=== PATIENT | female | born 1995 | race Caucasian/White ===

== ENCOUNTER 2017-08-03 18:33 | Emergency (ER) | payer SELFPAY ==
--- NOTE | 2017-08-03 20:36 | ER Document Report ---
ED Medical Screen (RME) - General Chief Complaint: Sinus Congestion Stated Complaint: NAUSEA Time Seen by Provider: 08/03/17 20:27 Mode of Arrival: Ambulatory Information source: Patient Notes: Patient presents complaining of nausea for the past 3-4 days with sinus congestion that started yesterday. Patient states she held a cat recently and is allergic to cats. Patient is concerned that she may be and states that she can only have serum test for accuracy. I have greeted and performed a rapid initial assessment of this patient. A comprehensive ED assessment and evaluation of the patient, analysis of test results and completion of the medical decision making process will be conducted by additional ED providers. TRAVEL OUTSIDE OF THE [place] IN LAST 30 DAYS: No - Related Data Allergies/Adverse Reactions: Cephalosporins Allergy (Verified 08/03/17 18:35) ciprofloxacin [From Cipro] Allergy (Verified 08/03/17 18:35) Penicillins Allergy (Verified 08/03/17 18:35) sulfamethoxazole [From Bactrim] Allergy (Verified 08/03/17 18:35) trimethoprim [From Bactrim] Allergy (Verified 08/03/17 18:35) Past Medical History - Social History Frequency of alcohol use: None Drug Abuse: None - Past Medical History Cardiac Medical History: Reports: Hx Hypertension - "borderline HTN" Pulmonary Medical History: Reports: Hx Asthma Renal/ Medical History: Denies: Hx Peritoneal Dialysis Past Surgical History: Reports: Hx Section, Hx Orthopedic Surgery - wrist surgery x2 Physical Exam - Vital signs Vitals: Temp Pulse Resp BP Pulse Ox 98.9 F 89 20 142/75 H 97 08/03/17 18:38 08/03/17 18:38 08/03/17 18:38 08/03/17 18:38 08/03/17 18:38 - HEENT Ears: Normal External canal: Normal Sinus: Maxillary Nasal: Swelling, Clear rhinorrhea Course - Vital Signs Vital signs: Temp Pulse Resp BP Pulse Ox 98.9 F 89 20 142/75 H 97 08/03/17 18:38 0318 18:38 08/03/17 18:38 08/03/17 18:38 08/03/17 18:38
--- NOTE | 2017-08-03 22:13 | ER Document Report ---
ED Respiratory Problem - General Chief Complaint: Sinus Congestion Stated Complaint: NAUSEA Time Seen by Provider: 08/03/17 20:27 Mode of Arrival: Ambulatory Information source: Patient TRAVEL OUTSIDE OF THE [place] IN LAST 30 DAYS: No - HPI Patient complains to provider of: Other - NASAL CONGESTION Onset: Yesterday Notes: Patient is here with complaints of nausea vomiting as well as nasal congestion. She states that for the last 3-4 days she has felt nauseous and had some vomiting yesterday. No vomiting today. She denies any abdominal pain. She denies any fever or diarrhea. She is concerned that she may be and wanted a serum test to see if she is . She also states that she had a cat yesterday and since that time she has had nasal congestion and runny nose. She is allergic to cats. She is taken Zyrtec without relief. She denies any fevers. She denies sore throat. She denies difficulty breathing or swallowing. No chest pain or shortness of breath. No dysuria or hematuria. She denies any other complaints at this time. - Related Data Allergies/Adverse Reactions: Cephalosporins Allergy (Verified 08/03/17 18:35) ciprofloxacin [From Cipro] Allergy (Verified 08/03/17 18:35) Penicillins Allergy (Verified 08/03/17 18:35) sulfamethoxazole [From Bactrim] Allergy (Verified 08/03/17 18:35) trimethoprim [From Bactrim] Allergy (Verified 08/03/17 18:35) Past Medical History - General Information source: Patient - Social History Smoking Status: Former Smoker Frequency of alcohol use: None Drug Abuse: None Family History: Reviewed & Not Pertinent Patient has suicidal ideation: No Patient has homicidal ideation: No - Past Medical History Cardiac Medical History: Reports: Hx Hypertension - "borderline HTN" Pulmonary Medical History: Reports: Hx Asthma Renal/ Medical History: Denies: Hx Peritoneal Dialysis Past Surgical History: Reports: Hx Section, Hx Orthopedic Surgery - wrist surgery x2 Review of Systems - Review of Systems -: Yes All other systems reviewed and negative Physical Exam - Vital signs Vitals: Temp Pulse Resp BP Pulse Ox 98.9 F 89 20 142/75 H 97 08/03/17 18:38 08/03/17 18:38 08/03/17 18:38 08/03/17 18:38 08/03/17 18:38 - Notes Notes: GENERAL: alert, cooperative, nontoxic, no distress. HEAD: normocephalic, atraumatic EYES: conjunctiva pink without discharge, no external redness or swelling. EARS: no external swelling, no external redness, no mastoid redness, swelling, tenderness. Ear canals are clear without swelling or drainage. TMs pearly machado , no redness, no bulging, normal landmarks, no perforation. NOSE: atraumatic, no external swelling. clear rhinorrhea noted. Nasal congestion noted MOUTH/THROAT: mucous membranes moist and pink, posterior pharynx without erythema, swelling, exudate. No trismus or drooling. NECK: soft, supple, full range of motion, no meningismus. CHEST: no distress, lungs clear and equal throughout. No wheezing, rales, rhonchi. CARDIAC: regular rate and rhythm, no murmur, normal capillary refill, normal pulses. No peripheral edema noted. BACK: full range of motion, no CVA tenderness. ABDOMEN: Soft, nontender. No rebound tenderness or guarding. EXTREMITIES: full range of motion of all extremities. No redness, no swelling. NEURO: alert and oriented A&O3, no focal deficits, full range of motion of all extremities. PYSCH: appropriate mood, affect. Patient is cooperative. SKIN: pink, warm, dry, no rash. Course - Re-evaluation Re-evalutation: 08/03/17 22:09 Patient is nontoxic appearing with stable vitals. The patient is here with complaints of nausea vomiting that has since resolved and concerned that she may be . Serum is negative. She has no abdominal tenderness on exam. She has no urinary symptoms. She is also concerned because she is having nasal congestion. She has no signs of infection. It is possible she could be having allergic reaction due to holding the cat yesterday or an upper respiratory infection. She was instructed to continue taking her Zyrtec. I will discharge her home with Flonase. She can try [id number] Sudafed if she would like. Tylenol Motrin as needed. Follow-up if not better in the next week, sooner for increasing pain, fever, persistent vomiting, abdominal pain, or for any further concerns. The patient is noted to have elevated blood pressure during today's emergency department visit. The patient was informed of this finding. The patient was instructed that this may be related to pre-hypertension and requires further evaluation with a primary care provider. The patient has no hypertensive symptoms at this time. The patient's emergency department workup and current diagnosis were explained to the patient and or family. Follow-up instructions were provided. Medications if prescribed were discussed. Instructions for when to return to the emergency department including specific worrisome symptoms were discussed with the patient and/or family. - Vital Signs Vital signs: Temp Pulse Resp BP Pulse Ox 98.9 F 89 20 142/75 H 97 08/03/17 18:38 08/03/17 18:38 08/03/17 18:38 08/03/17 18:38 08/03/17 18:38 Discharge - Discharge Clinical Impression: Nasal congestion URI (upper respiratory infection) Qualifiers: URI type: unspecified viral URI Qualified Code(s): J06.9 - Acute upper respiratory infection, unspecified Nausea & vomiting Qualifiers: Vomiting type: unspecified Vomiting Intractability: non-intractable Qualified Code(s): R11.2 - Nausea with vomiting, unspecified Condition: Stable Disposition: HOME, SELF-CARE Instructions: Upper Respiratory Illness ([facility]), Vomiting ([facility]) Additional Instructions: Take medications as prescribed. Continue allergy medicine. He may also try [id number] Sudafed. Drink lots of fluids. Follow-up with your doctor if not better in 1 week, sooner for worsening symptoms, high fever, difficulty breathing or swallowing, severe abdominal pain, or for any further concerns. Your blood pressure was elevated during today's visit. Have this rechecked with your doctor. Prescriptions: Fluticasone Propionate [Flonase Nasal Portia 50 Mcg/Portia 16 gm] 1 spray NASL Q12 #1 inhaler Forms: Elevated Blood Pressure, Smoking Cessation Education Referrals: FELI PARRISH DO [Primary Care Provider] - Follow up as needed
[2017-08-03 22:31] VITALS: BP 141/83
== END 2017-08-03 22:21 | disposition home or self-care (01) ==
LOC: ER 18:33
DX: J06.9 Acute upper respiratory infection, unspecified (principal); R11.2 Nausea with vomiting, unspecified; R09.81 Nasal congestion; I10 Essential (primary) hypertension; Z87.891 Personal history of nicotine dependence
CPT/HCPCS: 36415; 84703; 99283

== ENCOUNTER 2017-09-27 12:38 | Emergency (ER) | payer SELFPAY ==
[2017-09-27 13:00] VITALS: BP 142/82
--- NOTE | 2017-09-27 13:22 | ER Document Report ---
HPI - HPI Patient complains to provider of: UTI Onset: Other - 1 week ago Onset/Duration: Gradual Pain Level: 3 Context: 22 yo female with urinary frequency, suprapubic cramping, 1-2 x hematuria few days ago, low back pain, no fever. Hx UTI. No vaginal discharge or odor, no itch. Has taken clindamycin left over 2 days ago. Associated Symptoms: Other - see above - REPRODUCTIVE Reproductive: DENIES: : Past Medical History - General Information source: Patient - Social History Smoking Status: Never Smoker Frequency of alcohol use: None Drug Abuse: None Lives with: Family Family History: Reviewed & Not Pertinent - Past Medical History Cardiac Medical History: Reports: Hx Hypertension - "borderline HTN" Pulmonary Medical History: Reports: Hx Asthma Renal/ Medical History: Denies: Hx Peritoneal Dialysis Past Surgical History: Reports: Hx Section, Hx Orthopedic Surgery - wrist surgery x2 Vertical Provider Document - CONSTITUTIONAL Agree With Documented VS: Yes Exam Limitations: No Limitations - INFECTION CONTROL TRAVEL OUTSIDE OF THE [place] IN LAST 30 DAYS: No - HEENT HEENT: Normocephalic - NECK Neck: Supple - RESPIRATORY Respiratory: Breath Sounds Normal, No Respiratory Distress - CARDIOVASCULAR Cardiovascular: Regular Rate, Regular Rhythm - GI/ABDOMEN Gastrointestinal: Abdomen Soft, Abdomen Non-Tender, No Organomegaly, Normal Bowel Sounds - BACK Back: negative: CVA Tenderness-Right, CVA Tenderness-Left - MUSCULOSKELETAL/EXTREMETIES Musculoskeletal/Extremeties: MAEW - NEURO Level of Consciousness: Awake - DERM Integumentary: No Rash Course - Re-evaluation Re-evalutation: 09/27/17 UA pos for UTI, neg hcg - Vital Signs Vital signs: Temp Pulse Resp BP Pulse Ox 98.7 F 87 19 142/82 H 97 09/27/17 12:59 09/27/17 12:59 09/27/17 12:59 09/27/17 12:59 09/27/17 12:59 Discharge - Discharge Clinical Impression: Urinary tract infection Qualifiers: Urinary tract infection type: acute cystitis Hematuria presence: without hematuria Qualified Code(s): N30.00 - Acute cystitis without hematuria Condition: Good Disposition: HOME, SELF-CARE Instructions: Nitrofurantoin ([facility]), Urinary Tract Infection ([facility]) Additional Instructions: plenty of fluids urine culture is pending to er if worse with fever, vomiting, flank pain Prescriptions: Nitrofurantoin/Nitrofuran Mac [Macrobid 100 mg Capsule] 100 mg PO BID #14 capsule Forms: Return to Work
[2017-09-27 13:57] LABS: APPEARANCE,URINE SLIGHTLY-CLOUDY; BILIRUBIN,URINE NEGATIVE (NEGATIVE); COLOR,URINE AMBER; GLUCOSE, URINE NEGATIVE (NEGATIVE); KETONES,URINE NEGATIVE (NEGATIVE); LEUKOCYTE ESTERASE,URINE SMALL (NEGATIVE); NITRITE,URINE POSITIVE (NEGATIVE); PROTEIN,URINE NEGATIVE (NEGATIVE); URINE SPECIFIC GRAVITY 1.017
[2017-09-27] MEDS ORDERED: NITROFURANTOIN MONOHYD/M-CRYST 100 MG CAPSULE PO ONE (14:13)
== END 2017-09-27 14:29 | disposition home or self-care (01) ==
LOC: ER 12:38
DX: N30.00 Acute cystitis without hematuria (principal); R10.2 Pelvic and perineal pain; M54.5 Low back pain
CPT/HCPCS: 99283; 87086; 81025; 87088; 81001; 87186; J8499

== ENCOUNTER 2017-10-11 16:51 | Emergency (ER) | payer SELFPAY ==
[2017-10-11] MEDS ORDERED: IBUPROFEN 800 MG TABLET PO ONE (17:45)
--- NOTE | 2017-10-11 18:15 | RADIOLOGY REPORT (SQ) ---
EXAM DESCRIPTION: ANKLE LEFT COMPLETE COMPLETED DATE/TIME: 10/11/2017 6:03 pm REASON FOR STUDY: L lateral malleolus pain COMPARISON: None. NUMBER OF VIEWS: Three views. TECHNIQUE: AP, lateral, and oblique radiographic images acquired of the left ankle. LIMITATIONS: None. FINDINGS: MINERALIZATION: Normal. BONES: No acute fracture or dislocation. No worrisome bone lesions. JOINTS: No effusions. SOFT TISSUES: No soft tissue swelling. No foreign body. OTHER: No other significant finding. IMPRESSION: NO RADIOGRAPHIC EVIDENCE OF ACUTE INJURY. TECHNICAL DOCUMENTATION: JOB ID: [id number] [place]-72 2010 [email or web address]- All Rights Reserved Reading location - IP/workstation name: [email or web address]
--- NOTE | 2017-10-11 18:16 | RADIOLOGY REPORT (SQ) ---
EXAM DESCRIPTION: FOOT LEFT COMPLETE COMPLETED DATE/TIME: 10/11/2017 6:03 pm REASON FOR STUDY: L heel pain, question spur vs fasciitis COMPARISON: None. NUMBER OF VIEWS: Three views. TECHNIQUE: AP, lateral and oblique radiographic images acquired of the left foot. LIMITATIONS: None. FINDINGS: MINERALIZATION: Normal. BONES: No acute fracture or dislocation. No worrisome bone lesions. JOINTS: No effusions. SOFT TISSUES: No soft tissue swelling. No foreign body. OTHER: No other significant finding. IMPRESSION: NO RADIOGRAPHIC EVIDENCE OF ACUTE INJURY. TECHNICAL DOCUMENTATION: JOB ID: [id number] [place]-72 2010 [email or web address]- All Rights Reserved Reading location - IP/workstation name: [email or web address]
--- NOTE | 2017-10-11 19:09 | ER Document Report ---
ED General - General Chief Complaint: Foot Pain Stated Complaint: LEFT HEEL PAIN Time Seen by Provider: 10/11/17 17:17 TRAVEL OUTSIDE OF THE [place] IN LAST 30 DAYS: No - HPI Notes: Patient is a 22-year-old female presents emergency department with report that 3 weeks ago she inverted her left ankle and has had left ankle pain since that time that is gradually improved and the swelling is improved, but she still has mild left lateral ankle discomfort but has noted that her left heel and plantar aspect of the foot have been progressively hurting over the course of the last week. The patient has been wearing a flat soled slipper recently. The patient denies any chest pain or shortness of breath or numbness or paresthesia or nausea or vomiting. The patient reports no other musculoskeletal complaint or arthritis pain. - Related Data Allergies/Adverse Reactions: Cephalosporins Allergy (Verified 10/11/17 16:52) ciprofloxacin [From Cipro] Allergy (Verified 10/11/17 16:52) Penicillins Allergy (Verified 10/11/17 16:52) sulfamethoxazole [From Bactrim] Allergy (Verified 10/11/17 16:52) trimethoprim [From Bactrim] Allergy (Verified 10/11/17 16:52) Past Medical History - General Information source: Patient - Social History Smoking Status: Unknown if Ever Smoked Frequency of alcohol use: Occasional Drug Abuse: None Lives with: Alone Family History: Reviewed & Not Pertinent Patient has suicidal ideation: No Patient has homicidal ideation: No - Past Medical History Cardiac Medical History: Reports: Hx Hypertension - "borderline HTN" Pulmonary Medical History: Reports: Hx Asthma Renal/ Medical History: Denies: Hx Peritoneal Dialysis Past Surgical History: Reports: Hx Section, Hx Orthopedic Surgery - wrist surgery x2 Review of Systems - Review of Systems -: Yes All other systems reviewed and negative Physical Exam - Vital signs Vitals: Temp Pulse Resp BP Pulse Ox 98.7 F 87 16 147/81 H 97 10/11/17 16:58 10/11/17 16:58 10/11/17 16:58 10/11/17 16:58 10/11/17 16:58 - Notes Notes: Examination general no obvious distress. HEENT atraumatic normocephalic. Conjunctiva clear. Examination left lower extremity shows a nonfocal hip and knee exam patient has pain along the lateral aspect of the left ankle with minimal residual swelling over the lateral malleolus, but no erythema. Patient also has pain through the plantar anterior aspect of the calcaneus extending along the plantar fascia. No bony deformity or crepitance. Distally, the patient is neurovascularly intact with good distal sensation and capillary refill. There is no proximal erythema or adenopathy. Ligamentous structures appear otherwise intact. Course - Re-evaluation Re-evalutation: 10/11/17 19:13 X-rays were negative. Patient was given ibuprofen. No evidence for obvious stress fracture or neurovascular compromise. - Vital Signs Vital signs: Temp Pulse Resp BP Pulse Ox 98.7 F 87 16 147/81 H 97 10/11/17 16:58 10/11/17 16:58 10/11/17 16:58 10/11/17 16:58 10/11/17 16:58 Discharge - Discharge Clinical Impression: Plantar fasciitis of left foot Ankle sprain Qualifiers: Encounter type: initial encounter Involved ligament of ankle: deltoid ligament Laterality: left Qualified Code(s): S93.422A - Sprain of deltoid ligament of left ankle, initial encounter Condition: Stable Disposition: HOME, SELF-CARE Instructions: Sprained Ankle ([facility]), Plantar Fasciitis or Heel Spur ([facility]) Additional Instructions: Use shoe inserts and arch supports. Elevate and limit time on feet as needed for pain. Do not go barefoot. Prescriptions: Ibuprofen [Motrin 800 mg Tablet] 800 mg PO Q8H PRN #30 tab PRN Reason: Referrals: DONAVAN SHEA DPM [ACTIVE STAFF] - Follow up as needed RAMU DUARTE DPM [NO LOCAL MD] - Follow up as needed
[2017-10-11 19:24] VITALS: BP 121/65
== END 2017-10-11 19:22 | disposition home or self-care (01) ==
LOC: ER 16:51
DX: S93.422A Sprain of deltoid ligament of left ankle, initial encounter (principal); M72.2 Plantar fascial fibromatosis; M25.572 Pain in left ankle and joints of left foot; X50.1XXA Overexertion from prolonged static or awkward postures, initial encounter; I10 Essential (primary) hypertension; J45.909 Unspecified asthma, uncomplicated
CPT/HCPCS: 99283

== ENCOUNTER 2017-12-04 17:43 | Emergency (ER) | payer SELFPAY ==
[2017-12-04 18:00] VITALS: BP 148/81
--- NOTE | 2017-12-04 18:10 | ER Document Report ---
ED Medical Screen (RME) - General Chief Complaint: Abdominal Cramping Stated Complaint: ABDOMINAL PAIN Time Seen by Provider: 12/04/17 18:08 Mode of Arrival: Ambulatory Information source: Patient Notes: 22-year-old female presented to ED for cramping in the pelvic area. She states she been crampy times a week. She states that it was just temporary. But she has been cramping for a week now with no.. She did a urine test and states it was negative. She states she has had negative urine test in the past where she was . She is concerned at this time. She does not smoke she drinks socially does not do drugs. She is allergic to penicillin Cipro cephalosporins and Bactrim. I have greeted and performed a rapid initial assessment of this patient. A comprehensive ED assessment and evaluation of the patient, analysis of test results and completion of medical decision making process will be conducted by an additional ED providers. TRAVEL OUTSIDE OF THE [place] IN LAST 30 DAYS: No - Related Data Allergies/Adverse Reactions: Cephalosporins Allergy (Verified 12/04/17 17:44) ciprofloxacin [From Cipro] Allergy (Verified 12/04/17 17:44) Penicillins Allergy (Verified 12/04/17 17:44) sulfamethoxazole [From Bactrim] Allergy (Verified 12/04/17 17:44) trimethoprim [From Bactrim] Allergy (Verified 12/04/17 17:44) Past Medical History - Past Medical History Cardiac Medical History: Reports: Hx Hypertension - "borderline HTN" Pulmonary Medical History: Reports: Hx Asthma Renal/ Medical History: Denies: Hx Peritoneal Dialysis Past Surgical History: Reports: Hx Section, Hx Orthopedic Surgery - wrist surgery x2 Physical Exam - Vital signs Vitals: Temp Pulse Resp BP Pulse Ox 98.9 F 106 H 22 H 148/81 H 99 12/04/17 17:59 12/04/17 17:59 12/04/17 17:59 12/04/17 17:59 12/04/17 17:59 Course - Vital Signs Vital signs: Temp Pulse Resp BP Pulse Ox 98.9 F 106 H 22 H 148/81 H 99 12/04/17 17:59 12/04/17 17:59 12/04/17 17:59 12/04/17 17:59 12/04/17 17:59
[2017-12-04 18:36] LABS: ABSOLUTE BASOPHILS # (AUTO) 0.1 10^3/uL (0.0-0.2); ABSOLUTE EOSINOPHILS # (AUTO) 0.3 10^3/uL (0.0-0.6); ABSOLUTE LYMPHOCYTES (AUTO) 2.7 10^3/uL (0.5-4.7); ABSOLUTE MONOCYTES (AUTO) 0.7 10^3/uL (0.1-1.4); ABSOLUTE NEUT (AUTO) 4.9 10^3/uL (1.7-8.2); BASOPHILS % (AUTO) 0.9 % (0-2); EOSINOPHILS % (AUTO) 3.5 % (0-6); HEMATOCRIT 39.4 % (36.0-47.0); HEMOGLOBIN 13.8 g/dL (12.0-15.5); LYMPHOCYTES % (AUTO) 30.7 % (13-45); MEAN CORPUSCULAR HEMOGLOBIN 30.2 pg (27.0-33.4); MEAN CORPUSCULAR HGB CONC 35.1 g/dL (32.0-36.0); MEAN CORPUSCULAR VOLUME 86 fl (80-97); MONOCYTES % (AUTO) 7.9 % (3-13); PLATELET COUNT 253 10^3/uL (150-450); RED BLOOD COUNT 4.58 10^6/uL (3.72-5.28); RED CELL DISTRIBUTION WIDTH 13.1 % (11.5-14.0); TOTAL CELLS COUNTED % (AUTO) 100 %; WHITE BLOOD COUNT 8.6 10^3/uL (4.0-10.5)
[2017-12-04 18:43] LABS: APPEARANCE,URINE CLEAR; BILIRUBIN,URINE NEGATIVE (NEGATIVE); COLOR,URINE YELLOW; GLUCOSE, URINE NEGATIVE (NEGATIVE); KETONES,URINE NEGATIVE (NEGATIVE); LEUKOCYTE ESTERASE,URINE NEGATIVE (NEGATIVE); NITRITE,URINE NEGATIVE (NEGATIVE); PROTEIN,URINE NEGATIVE (NEGATIVE); UROBILINOGEN,URINE NEGATIVE mg/dL (<2.0)
--- NOTE | 2017-12-04 19:02 | ER Document Report ---
ED GI/ - General Chief Complaint: Abdominal Cramping Stated Complaint: ABDOMINAL PAIN Time Seen by Provider: 12/04/17 18:08 Mode of Arrival: Ambulatory Information source: Patient Notes: 22-year-old female presents to ED for cramping in the pelvic area. She states she has been cramping for over a week. She states she has not had a period and was thinking she was just getting ready to have her period is what she was cramping but she still has not started. She states she did a test at home which was negative. She states she has had negative urine test before when she was . She is alert and oriented respirations regular and unlabored speaking in full sentences steady gait. TRAVEL OUTSIDE OF THE [place] IN LAST 30 DAYS: No - HPI Patient complains to provider of: Missed/Late menses, Pelvic pain Onset: Last week Timing/Duration: Gradual Quality of pain: Cramping Severity at maximum: Moderate Severity in ED: Moderate Pain Level: 2 Location: Pelvis Vaginal bleeding (Compared to normal period): None Menstrual period history: Missed Associated symptoms: Other - Pelvic pain Exacerbated by: Denies Relieved by: Denies Similar symptoms previously: Yes Recently seen / treated by doctor: No - Related Data Allergies/Adverse Reactions: Cephalosporins Allergy (Verified 12/04/17 17:44) ciprofloxacin [From Cipro] Allergy (Verified 12/04/17 17:44) Penicillins Allergy (Verified 12/04/17 17:44) sulfamethoxazole [From Bactrim] Allergy (Verified 12/04/17 17:44) trimethoprim [From Bactrim] Allergy (Verified 12/04/17 17:44) Past Medical History - General Information source: Patient - Social History Smoking Status: Never Smoker Cigarette use (# per day): No Chew tobacco use (# tins/day): No Smoking Education Provided: No Frequency of alcohol use: Social Drug Abuse: None Family History: Reviewed & Not Pertinent Patient has suicidal ideation: No Patient has homicidal ideation: No - Past Medical History Cardiac Medical History: Reports: Hx Hypertension - "borderline HTN" Pulmonary Medical History: Reports: Hx Asthma EENT Medical History: Reports: None Neurological Medical History: Reports: None Endocrine Medical History: Reports: None Renal/ Medical History: Reports: None Malignancy Medical History: Reports: None GI Medical History: Reports: None Musculoskeletal Medical History: Reports None Skin Medical History: Reports None Psychiatric Medical History: Reports: None Traumatic Medical History: Reports: None Infectious Medical History: Reports: None Past Surgical History: Reports: Hx Section, Hx Orthopedic Surgery - wrist surgery x2 - Immunizations Immunizations up to date: Yes Hx Diphtheria, Pertussis, Tetanus Vaccination: Yes Review of Systems - Review of Systems Constitutional: No symptoms reported EENT: No symptoms reported Cardiovascular: No symptoms reported Respiratory: No symptoms reported Gastrointestinal: No symptoms reported Genitourinary: No symptoms reported Female Genitourinary: Other - Pain missed. Musculoskeletal: No symptoms reported Skin: No symptoms reported Hematologic/Lymphatic: No symptoms reported Neurological/Psychological: No symptoms reported -: Yes All other systems reviewed and negative Physical Exam - Vital signs Vitals: Temp Pulse Resp BP Pulse Ox 98.9 F 106 H 22 H 148/81 H 99 12/04/17 17:59 12/04/17 17:59 12/04/17 17:59 12/04/17 17:59 12/04/17 17:59 Interpretation: Normal - General General appearance: Appears well, Alert - HEENT Head: Normocephalic, Atraumatic Eyes: Normal Pupils: PERRL - Respiratory Respiratory status: No respiratory distress Chest status: Nontender Breath sounds: Normal Chest palpation: Normal - Cardiovascular Rhythm: Regular Heart sounds: Normal auscultation Murmur: No - Abdominal Inspection: Normal Distension: No distension Bowel sounds: Normal Tenderness: Nontender Organomegaly: No organomegaly - Back Back: Normal, Nontender - Extremities General upper extremity: Normal inspection, Nontender, Normal color, Normal ROM , Normal temperature General lower extremity: Normal inspection, Nontender, Normal color, Normal ROM , Normal temperature, Normal weight bearing. No: Aleksey's sign - Neurological Neuro grossly intact: Yes Cognition: Normal Orientation: AAOx4 Chamberlain Coma Scale Eye Opening: Spontaneous Chamberlain Coma Scale Verbal: Oriented Daniel Coma Scale Motor: Obeys Commands Daniel Coma Scale Total: 15 Speech: Normal Motor strength normal: LUE, RUE, LLE, RLE Sensory: Normal - Psychological Associated symptoms: Normal affect, Normal mood - Skin Skin Temperature: Warm Skin Moisture: Dry Skin Color: Normal Course - Re-evaluation Re-evalutation: 12/04/17 19:37 Discussed labs with patient and written report of labs given to patient. Patient was instructed to follow-up with [facility] for further testing for her late or missed.. She was also given instructions on ibuprofen and warm packs. Patient will be discharged home. - Vital Signs Vital signs: Temp Pulse Resp BP Pulse Ox 98.9 F 106 H 22 H 148/81 H 99 12/04/17 17:59 12/04/17 17:59 12/04/17 17:59 12/04/17 17:59 12/04/17 17:59 - Laboratory Result Diagrams: 12/04/17 18:25 12/04/17 18:42 Discharge - Discharge Clinical Impression: Pelvic cramping Condition: Stable Disposition: HOME, SELF-CARE Instructions: Use of Cpcz-Drh-Otjnhsh Ibuprofen ([facility]) Additional Instructions: PELVIC PAIN: There are many causes of pain in the pelvic area. The cause could be the tubes, ovaries, uterus, intestines, appendix, pelvic muscles and connective tissue, or the urinary tract. The cause of your pelvic pain is not clear. However, it seems safe to treat you outside the hospital. If the pain sounds like a temporary problem, we sometimes wait to see if it goes away. Other patients may need additional tests, such as pelvic ultrasound or cultures. Conditions may change. Call us or come back for reexamination if any problems occur, such as: (1) Pain that becomes more severe, steady, or becomes concentrated in one specific area. Also, pain that is more severe with movement or coughing. (2) Vomiting that persists or becomes more frequent. (3) Blood in the vomitus, urine, or bowel movements. Blood in the stool may have a tarry or black appearance. (4) Shaking chills or fever greater than 100 degrees. (5) The abdomen becomes more distended or swollen. (6) Bowel movements cease. (7) Heavy vaginal bleeding. I have discussed your labs with you and given you written reports of your labs. Your hCG is negative your CBC is normal chemistries are normal and your urine is normal. I understand you are late for you. In your having some pelvic cramping. You need to call a [facility] and schedule a follow-up appointment for further testing for why your period is late or missed. Warm compresses and ibuprofen for your discomfort. FOLLOW-UP CARE: If you have been referred to a physician for follow-up care, call the physician s office for an appointment as you were instructed or within the next two days. If you experience worsening or a significant change in your symptoms, notify the physician immediately or return to the Emergency Department at any time for re-evaluation. Forms: Elevated Blood Pressure Referrals: [facility] [Provider Group] - Follow up as needed
[2017-12-04 19:24] LABS: ALANINE AMINOTRANSFERASE 21 U/L (9-52); ALBUMIN 4.3 g/dL (3.5-5.0); ALKALINE PHOSPHATASE 52 U/L (38-126); ANION GAP 13 (5-19); ASPARTATE AMINO TRANSFERASE 18 U/L (14-36); BILIRUBIN,DIRECT 0.2 mg/dL (0.0-0.4); BILIRUBIN,TOTAL 0.5 mg/dL (0.2-1.3); BLOOD UREA NITROGEN 10 mg/dL (7-20); CALCIUM 9.3 mg/dL (8.4-10.2); CARBON DIOXIDE 25 mmol/L (22-30); CHLORIDE 106 mmol/L (98-107); GLUCOSE 88 mg/dL (75-110); SODIUM 144.3 mmol/L (137-145); TOTAL PROTEIN 7.4 g/dL (6.3-8.2)
== END 2017-12-04 19:50 | disposition home or self-care (01) ==
LOC: ER 17:43
DX: R10.2 Pelvic and perineal pain (principal); R10.9 Unspecified abdominal pain; N91.2 Amenorrhea, unspecified; I10 Essential (primary) hypertension; J45.909 Unspecified asthma, uncomplicated
CPT/HCPCS: 36415; 80053; 81001; 84702; 85025; 99284

== ENCOUNTER 2017-12-08 14:18 | Emergency (ER) | payer MEDICAID ==
[2017-12-08] MEDS ORDERED: ONDANSETRON 4 MG TAB.RAPDIS PO ONE (14:45)
--- NOTE | 2017-12-08 14:47 | ER Document Report ---
ED Medical Screen (RME) - General Chief Complaint: Abdominal Pain Stated Complaint: STOMACH PAIN Time Seen by Provider: 12/08/17 14:36 Notes: RAPID MEDICAL EVALUATION DISCLOSURE I have seen this patient as part of a Rapid Medical Evaluation and, if applicable, placed any initially appropriate orders. The patient will be seen and fully evaluated, including a full history and physical exam, by a provider ( in Main ED or Fast Track) when a room becomes available. 22-year-old female here with continued left lower quadrant abdominal pain ongoing for the past week. She is also had some nausea but no vomiting diarrhea dysuria frequency hesitancy vaginal bleeding discharge. She was seen here last week and had a negative test. She does have a history of ovarian cysts in the past on the left side. EXAM LLQ TTP no peritoneal signs TRAVEL OUTSIDE OF THE [place] IN LAST 30 DAYS: No - Related Data Allergies/Adverse Reactions: Cephalosporins Allergy (Verified 12/08/17 14:19) ciprofloxacin [From Cipro] Allergy (Verified 12/08/17 14:19) Penicillins Allergy (Verified 12/08/17 14:19) sulfamethoxazole [From Bactrim] Allergy (Verified 12/08/17 14:19) trimethoprim [From Bactrim] Allergy (Verified 12/08/17 14:19) Past Medical History - Past Medical History Cardiac Medical History: Reports: Hx Hypertension - "borderline HTN" Pulmonary Medical History: Reports: Hx Asthma Renal/ Medical History: Denies: Hx Peritoneal Dialysis Psychiatric Medical History: Reports: Hx Depression Past Surgical History: Reports: Hx Section, Hx Orthopedic Surgery - wrist surgery x2 - Immunizations Immunizations up to date: Yes Hx Diphtheria, Pertussis, Tetanus Vaccination: Yes Physical Exam - Vital signs Vitals: Temp Pulse Resp BP Pulse Ox 98.7 F 91 20 149/93 H 98 12/08/17 14:21 12/08/17 14:21 12/08/17 14:21 12/08/17 14:21 12/08/17 14:21 Course - Vital Signs Vital signs: Temp Pulse Resp BP Pulse Ox 98.7 F 91 20 149/93 H 98 12/08/17 14:21 12/08/17 14:21 12/08/17 14:21 12/08/17 14:21 12/08/17 14:21
[2017-12-08 15:13] LABS: APPEARANCE,URINE CLEAR; BILIRUBIN,URINE NEGATIVE (NEGATIVE); COLOR,URINE YELLOW; GLUCOSE, URINE NEGATIVE (NEGATIVE); KETONES,URINE NEGATIVE (NEGATIVE); LEUKOCYTE ESTERASE,URINE NEGATIVE (NEGATIVE); NITRITE,URINE NEGATIVE (NEGATIVE); PROTEIN,URINE NEGATIVE (NEGATIVE); URINE SPECIFIC GRAVITY 1.021
[2017-12-08] MEDS ORDERED: KETOROLAC TROMETHAMINE INJ/PF 30 MG/1 ML SDV IM ONE (15:26)
--- NOTE | 2017-12-08 15:30 | ER Document Report ---
ED General - General Chief Complaint: Abdominal Pain Stated Complaint: STOMACH PAIN Time Seen by Provider: 12/08/17 14:36 TRAVEL OUTSIDE OF THE [place] IN LAST 30 DAYS: No - HPI Notes: Patient is a 22-year-old female no significant past medical history who presents to the ED complaining of bilateral lower pelvic pain and cramping 1 week, but does favor the left side. Patient states that she was evaluated 4 days ago and had an unremarkable workup at that time, but did not have an ultrasound performed nor pelvic exam. Patient states that she has not called OB /RHEUMATOLOGY SPECIALIST for further evaluation. She is still eating and drinking without any difficulties otherwise. She is urinating normally and having normal bowel movements. She has not had any vaginal discharge, odor, or bleeding. Her surgical history to her abdomen consists of one . Denies any smoking or IV drug use. No other concerns or complaints. Denies any headache, fever, URI, sore throat, chest pain, palpitations, syncope, cough, shortness of breath , wheeze, dyspnea, nausea/vomiting/diarrhea, urinary retention, dysuria, hematuria, back pain, loss of control of bowel or bladder, numbness/tingling, saddle anesthesia, muscle paralysis/weakness, or rash. - Related Data Allergies/Adverse Reactions: Cephalosporins Allergy (Verified 12/08/17 14:19) ciprofloxacin [From Cipro] Allergy (Verified 12/08/17 14:19) Penicillins Allergy (Verified 12/08/17 14:19) sulfamethoxazole [From Bactrim] Allergy (Verified 12/08/17 14:19) trimethoprim [From Bactrim] Allergy (Verified 12/08/17 14:19) Past Medical History - Social History Smoking Status: Unknown if Ever Smoked Family History: Reviewed & Not Pertinent Patient has suicidal ideation: No Patient has homicidal ideation: No - Past Medical History Cardiac Medical History: Reports: Hx Hypertension - "borderline HTN" Pulmonary Medical History: Reports: Hx Asthma Renal/ Medical History: Denies: Hx Peritoneal Dialysis Psychiatric Medical History: Reports: Hx Depression Past Surgical History: Reports: Hx Section, Hx Orthopedic Surgery - wrist surgery x2 - Immunizations Immunizations up to date: Yes Hx Diphtheria, Pertussis, Tetanus Vaccination: Yes Review of Systems - Review of Systems -: Yes All other systems reviewed and negative Physical Exam - Vital signs Vitals: Temp Pulse Resp BP Pulse Ox 98.7 F 91 20 149/93 H 98 12/08/17 14:21 12/08/17 14:21 12/08/17 14:21 12/08/17 14:21 12/08/17 14:21 - Notes Notes: PHYSICAL EXAMINATION: GENERAL: Well-appearing, well-nourished and in no acute distress. LUNGS: Breath sounds clear to auscultation bilaterally and equal. No wheezes rales or rhonchi. HEART: Regular rate and rhythm without murmurs ABDOMEN: Soft, nondistended abdomen. No guarding, no rebound. No masses appreciated. Normal bowel sounds present. CVA tenderness negative bilaterally. + very mild tenderness lower pelvic b/l. Female : No inguinal adenopathy. External genitalia without erythema, lesions , or masses. Vaginal mucosa pink scant white discharge. Cervix parous, pink, and without discharge. Uterus is smooth. No adnexal tenderness. Extremities: No cyanosis/clubbing/edema b/l. Peripheral pulses 2+. Capillary refill less than 3 seconds. NEUROLOGICAL: Normal speech, normal gait. PSYCH: Normal mood, normal affect. SKIN: Warm, Dry, normal turgor, no rashes or lesions noted. Course - Re-evaluation Re-evalutation: 12/08/17 16:53 Patient is an afebrile, well-hydrated, 22-year-old female who presents to the ED with pelvic pain and pectoral vaginosis. Vitals are acceptable without any significant tachycardia, tachypnea, or hypoxia. PE is otherwise unremarkable. Urinalysis and hCG are unremarkable for any acute pathology. See wet mount results. Chlam/gonorrhea tests are pending. Patient declined wanting any treatment for chlamydia/gonorrhea at this time and is aware that she may have the return if any test comes back positive. Patient is nontoxic-appearing is tolerating p.o. without any difficulties. Transvaginal ultrasound was also unremarkable for any acute pathology. No other labs or imaging warranted at this time based on H&P. Low suspicion/risk for acute appendicitis, bowel obstruction, acute cholecystitis, acute cholangitis, perforated diverticulitis, incarcerated hernia, pancreatitis, perforated ulcer, peritonitis, sepsis, pelvic inflammatory disease, ectopic , tubo-ovarian abscess, ovarian torsion, or other systemic emergent condition at this time. Patient is aware that her condition can change from initial presentation and she needs to monitor symptoms closely and seek medical attention if any acute changes. I will send her home with prescription for Flagyl. Conservative measures otherwise for symptoms. Recheck with your PCM/OBGYN in 3-5 days. Return to the ED with any worsening/concerning symptoms otherwise as reviewed in discharge. Patient is in agreement. - Vital Signs Vital signs: Temp Pulse Resp BP Pulse Ox 98.7 F 91 20 149/93 H 98 12/08/17 14:21 12/08/17 14:21 12/08/17 14:21 12/08/17 14:21 12/08/17 14:21 - Laboratory Laboratory results interpreted by me: 12/08/17 14:48 Urine Urobilinogen 2.0 H Urine Ascorbic Acid 40 H Procedures - Pelvic Exam Pelvic exam Time completed: 16:10 Cultures obtained: Yes Wet prep obtained: Yes Bimanual exam performed: Yes - neg Witnessed by: omari Daniel pct Discharge - Discharge Clinical Impression: Bacterial vaginosis, Pelvic pain Condition: Stable Disposition: HOME, SELF-CARE Instructions: Pelvic Pain ([facility]), Vaginosis, Bacterial ([facility]), Metronidazole ([facility] ) Additional Instructions: Maintain fluid intake Proper hygenic technique Keep the skin clean Safe sexual practices with condoms everytime Tylenol/ibuprofen as needed Check in with the health department this week for further testing if warranted Your chlamydia/Ghon test are pending and you will be notified if positive results; you may call in 1 day for the results as well Return immediately if symptoms worsen F/u with your PCM/OBGYN in 3-5 days for a recheck Consider consult with a Urologist for ongoing/worsening symptoms. Return to the ED with any development of ESQUEDA/fever, trouble with vision, eye redness, worsening pain, urethral discharge, urinary retention, blood in the urine, flank pain, abdominal pain, n/v, Chest Pain, shortness of breath, joint pains, trouble breathing, or any other worsening/concerning symptoms as needed otherwise. Prescriptions: Metronidazole [Flagyl] 500 mg PO BID #14 tablet Forms: Elevated Blood Pressure Referrals: [facility] [Provider Group] - Follow up in 3-5 days
--- NOTE | 2017-12-08 16:15 | RADIOLOGY REPORT (SQ) ---
EXAM DESCRIPTION: U/S NON OB PEL TV W/DOPPLER COMPLETED DATE/TIME: 12/08/2017 4:04 pm REASON FOR STUDY: LLQ pain, hx cyst; eval cyst torsion etc COMPARISON: None. TECHNIQUE: Dynamic and static grayscale images acquired of the pelvis via transvaginal approach and recorded on PACS. Additional selected color Doppler and spectral images recorded. LIMITATIONS: None. FINDINGS: UTERUS: Contour normal. No mass. Uterus is 9 x 6 x 4 cm in size. ENDOMETRIAL STRIPE: No focal or generalized thickening. No masses. Endometrium 5 mm in thickness. CERVIX: Closed, 2.4 cm in length. RIGHT OVARY AND DOPPLER: Normal size, 2.6 x 2 x 1.1 cm. No worrisome masses. Normal arterial vascular flow without evidence for torsion. LEFT OVARY AND DOPPLER: Normal size, 2.8 x 1.9 x 1.6 cm. No worrisome masses. Normal arterial vascula r flow without evidence for torsion. FREE FLUID: None noted. OTHER: No other significant finding. IMPRESSION: Unremarkable PELVIC ULTRASOUND. TECHNICAL DOCUMENTATION: JOB ID: [id number] [employer]- All Rights Reserved Reading location - IP/workstation name: [email or web address]
[2017-12-08 16:33] LABS: T.VAGINALIS (WET MOUNT) NO TRICHOMONAS SEEN; YEAST (WET MOUNT) NO YEAST SEEN
[2017-12-08 16:34] LABS: BACTERIA (WET MOUNT) 4+ BACTERIA SEEN; EPITHELIALS (WET MOUNT) 3+ EPITHELIALS SEEN; WBCS (WET MOUNT) FEW WBCS SEEN
[2017-12-08 17:22] VITALS: BP 138/75
[2017-12-08 17:59] LABS: CHLAM PCR NOT DETECTED (NOT DETECT); GON PCR NOT DETECTED (NOT DETECT)
== END 2017-12-08 17:21 | disposition home or self-care (01) ==
LOC: ER 14:18
DX: N76.0 Acute vaginitis (principal); B96.89 Other specified bacterial agents as the cause of diseases classified elsewhere; R10.2 Pelvic and perineal pain; Z88.3 Allergy status to other anti-infective agents; Z88.0 Allergy status to penicillin
CPT/HCPCS: 99284; 96372; 87210; 81025; 81001; 87491; 87591; 76830; 93976; S0119; J1885

== ENCOUNTER 2019-03-12 00:53 | Outpatient (CLI) | payer MEDICAID ==
[2019-03-12 02:52] LABS: APPEARANCE,URINE CLEAR; BILIRUBIN,URINE NEGATIVE (NEGATIVE); COLOR,URINE STRAW; GLUCOSE, URINE NEGATIVE (NEGATIVE); KETONES,URINE NEGATIVE (NEGATIVE); LEUKOCYTE ESTERASE,URINE NEGATIVE (NEGATIVE); NITRITE,URINE NEGATIVE (NEGATIVE); PROTEIN,URINE NEGATIVE (NEGATIVE); URINE SPECIFIC GRAVITY 1.004; UROBILINOGEN,URINE NEGATIVE mg/dL (<2.0)
[2019-03-12 03:04] LABS: URINE AMPHETAMINES SCREEN NEGATIVE; URINE BARBITURATES SCREEN NEGATIVE; URINE BENZODIAZEPINES SCREEN NEGATIVE; URINE COCAINE SCREEN NEGATIVE; URINE MARIJUANA (THC) SCREEN NEGATIVE; URINE METHADONE SCREEN NEGATIVE; URINE PHENCYCLIDINE SCREEN NEGATIVE
--- NOTE | 2019-03-12 03:32 | RADIOLOGY REPORT (SQ) ---
Ultrasound OB limited on 03/12/2019 at 2:36 AM CLINICAL INDICATION: 26 weeks , pelvic cramping, evaluate cervical length COMPARISON: None this FINDINGS: Multiple sonographic images are obtained throughout the pelvis by transabdominal and limited transvaginal approach, both transverse and sagittal images are obtained. Single living intrauterine fetus is noted in breech presentation. Placenta is fundal in location with no evidence of placenta previa or abruption. Positive cardiac activity is noted with heart rate of 144 bpm. Normal amount of amniotic fluid is noted with amniotic fluid index of 12.3 cm. Cervical length measures approximately 3.8 cm and the cervix is closed. measurements for dates were not performed. IMPRESSION: Single living fetus in breech presentation with no acute abnormality noted.
== END 2019-03-12 03:25 | disposition home or self-care (01) ==
LOC: LC 00:53
PROVIDERS: ATTEND Obstetrics & Gynecology
PROC: 4A1HXCZ Monitoring of Products of Conception, Cardiac Rate, External Approach (ICD-10-PCS; principal; 2019-03-12)
DX: O47.02 False labor before 37 completed weeks of gestation, second trimester (principal); Z3A.26 26 weeks gestation of pregnancy
CPT/HCPCS: 76815; 80307; 81001